=== PATIENT | male | born 1945 | race Caucasian/White ===

== ENCOUNTER → 2017-03-25 | Outpatient (CLI) | payer OTHER, BC | LOC: FIMAGING 12:51 | PROVIDERS: ATTEND Nurse Practitioner Family | DX: R53.83 Other fatigue (principal); R05 Cough; R07.9 Chest pain, unspecified; F17.210 Nicotine dependence, cigarettes, uncomplicated ==

== ENCOUNTER 2017-03-28 07:56 | Emergency (ER) | payer OTHER, BC ==
[2017-03-28 09:12] LABS: % IMMATURE GRANULYOCYTES 0.3 % (0.0-1.1); ABSOLUTE IMMATURE GRANULOCYTES 0.02 10^3/uL (0.00-0.10); ADD DIFF? NO; ADD MORPH? NO; ADD SCAN? NO; ATYPICAL LYMPHOCYTE FLAG 20 (0-99); FRAGMENT RBC FLAG 0 (0-99); HEMATOCRIT 45.7 % (40.0-51.0); HEMOGLOBIN 15.9 g/dL (13.7-17.5); LEFT SHIFT FLG 0 (0-99); LIPEMIA HEMOLYSIS FLAG 90 (0-99); MEAN CELL HEMOGLOBIN 32.3 pg (27.9-34.1); MEAN CELL HEMOGLOBIN CONCENTR. 34.8 g/dL (32.4-36.7); MEAN CELL VOLUME 92.7 fL (81.5-99.8); PLATELET CLUMPS FLAG 10 (0-99); PLATELET COUNT 122 10^3/uL (150-400); RED BLOOD CELL COUNT 4.93 10^6/uL (4.40-6.38); RED CELL DISTRIBUTION WIDTH 12.7 % (11.5-15.2)
[2017-03-28 09:20] LABS: ANION GAP 10 mEq/L (8-16); CALCIUM 9.3 mg/dL (8.5-10.4); CARBON DIOXIDE 26 mEq/l (22-31); CHLORIDE 94 mEq/L (97-110); CREATININE 0.7 mg/dL (0.7-1.3); GLOMERULAR FILTRATION RATE > 60; GLUCOSE 104 mg/dL (70-100); SODIUM 130 mEq/L (134-144)
[2017-03-28] MEDS ORDERED: NS 1,000 ML IV ONE (09:23)
--- NOTE | 2017-03-28 09:36 | CPEKG ---
Heart Rate: 56 RR Interval: 1071 P-R Interval: 196 QRSD Interval: 94 QT Interval: 440 QTC Interval: 425 P [place]: 76 QRS [place]: -29 T Wave [place]: 55 EKG Severity - BORDERLINE ECG - EKG Impression: SINUS RHYTHM EKG Impression: BORDERLINE LEFT AXIS DEVIATION EKG Impression: LOW VOLTAGE IN FRONTAL LEADS EKG Impression: BORDERLINE R WAVE PROGRESSION, ANTERIOR LEADS Electronically Signed By: Dez Greer 28-Mar-2017 14:34:52
--- NOTE | 2017-03-28 09:38 | EDPHY ---
H & P Stated Complaint: +flu;abnl labs done 03/26/17.Dr called him yesterday to go [facility] for IV fluids Source: Patient, Old records Exam Limitations: No limitations - Personal History Current Tetanus Diphtheria and Acellular Pertussis (TDAP): Yes - Medical/Surgical History Hx Chronic Respiratory Disease: Yes Hx Cardiac Disease: Yes Other PMH: HTN - Social History Smoking Status: Current every day smoker HPI/ROS: CHIEF COMPLAINT: Influenza, weakness, hyponatremia HISTORY OF PRESENT ILLNESS: Patient complains of weakness and reportedly abnormal labs. He says that he was diagnosed with the flu 10 days ago. This was after over 2 days of symptoms at that time, thus he was not started on Tamiflu. He has been increasing his fluids since diagnosis. He has been taking anti-inflammatories as needed. He did experience headache, body aches, fevers, chills, cough and nausea. No vomiting. No bloody stools or emesis. No chest pain. Does have occasional shortness of breath and cough. He says he feels better today than he did 10 days ago, but over the course of the week he had a laboratory studies drawn twice due to weakness. Primary care physician says that his sodium was low and has recommended he come to the hospital. No other associated complaints or modifying factors. REVIEW OF SYSTEMS: Ten systems reviewed and are negative unless otherwise noted in the HPI PERTINENT MEDICAL HISTORY: Former smoker, hypertension, hypothyroid, previous [place] EXAMINATION General Appearance: Alert, no distress Head: normocephalic, atraumatic Eyes: Pupils equal and round, no conjunctival pallor or injection ENT, Mouth: Mucous membranes moist Neck: Normal inspection, supple, non-tender Respiratory: Mild rhonchi. No crackles or consolidation. No wheezing. Cardiovascular: Regular rate and rhythm. No murmur. Pulses intact distally. Gastrointestinal: Abdomen is soft and nontender Back: non-tender, no bony abnormalities Neurological: GCS 15. A&O, nonfocal, normal gait Skin: Warm and dry, no rash Extremities: Nontender, no pedal edema Psychiatric: Mood and affect normal DIFFERENTIAL DIAGNOSES: Including but not limited to hyponatremia, pneumonia, influenza, dehydration, hyperkalemia, hypochloremia MDM: 9:15 a.m. Influenza with weakness. Patient is here because he had been told his laboratory studies were abnormal. Chart review discovers hyponatremia, hypochloremia and mild thrombocytopenia. No chest pain. The patient says he is feeling weak but much better than when he was diagnosed with the flu last Tuesday. He vital signs are within normal limits. I will repeat his chemistry. 10:00 a.m. Sodium has increased to 130 mEq. Chloride has also increased to 94. These are minimally low laboratory studies. Will provide IV fluid resuscitation with 1 L infused over 2 hours. Patient is comfortable with being discharged home and does not actually want to be here. I do feel he is stable for discharge home as his symptoms are improving, his vital signs are all within normal limits, he is mentating appropriately and has no chest pain. I will discuss the case with his primary care physician prior to discharge home 10:10 a.m. I discussed the case with Dr. Gasca. I informed her of the patient's recent history and illness, as well as his hyponatremia. I informed her that the sodium has gone from 126 2 days ago to 130 today. I have also informed her the increase in his chloride. Informed that we are providing graduated IV fluid resuscitation and plan for discharge home. She agrees that this is reasonable given the description of the case. She would like the patient to be seen Tuesday, Tuesday or in the clinic for recheck of the sodium. 10:35 a.m. I have re-evaluated the patient. I have discussed the conversation with him that I had with his primary care physician's office. He agrees that he would like to be discharged home and is comfortable this. The be discharged home after the IV fluid. He is to return to ER for any worsening of the weakness, chest pain, persistent fever, vomiting. He is also to return for any confusion , headache or dizziness. SUPERVISION: Patient was evaluated in conjunction with the supervising physician. Please see their note for details. (Marco Antonio Snider) Constitutional: Initial Vital Signs Temperature (C) 98.1 F 03/28/17 08:09 Heart Rate 62 03/28/17 08:09 Respiratory Rate 18 03/28/17 08:09 Blood Pressure 130/76 H 03/28/17 08:09 O2 Sat (%) 93 03/28/17 08:09 O2 Delivery Mode Room Air Allergies/Adverse Reactions: No Known Allergies Allergy (Unverified 12/28/10 11:46) Home Medications: Medication Instructions Recorded Albuterol [Proventil Inhaler HFA 1 - 2 puffs IH DAILY PRN 03/28/17 (*)] Aspirin [Aspirin 81mg (*)] 81 mg PO DAILY 03/28/17 Levothyroxine [Synthroid 100 mcg 100 mcg PO DAILY06 03/28/17 (*)] Metoprolol Succinate Xr [Toprol Xl 50 mg PO DAILY 03/28/17 50 mg (*)] Multivitamins [Multivitamin (*)] 1 each PO DAILY 03/28/17 Rosuvastatin Calcium [Crestor 20mg 20 mg PO DAILY 03/28/17 (*)] amLODIPine BESYLATE [Norvasc 5 mg 5 mg PO DAILY 03/28/17 (*)] Medical Decision Making ED Course/Re-evaluation: 941: Patient evaluated by myself. He is well-appearing and resting comfortably. I discussed lab results with him and options of returning home or being admitted to the hospital for monitoring. He is comfortable returning home and states that he is able to undergo daily activities appropriately. I feel comfortable with this decision. He will be given strict return precautions and discharged home in good condition. (Dez Greer) - Data Points Laboratory Results: Laboratory Results 03/28/17 08:30 03/28/17 08:30 03/28/17 03/28/17 08:30 08:30 WBC 6.31 10^3/uL 10^3/uL (3.80-9.50) RBC 4.93 10^6/uL 10^6/uL (4.40-6.38) Hgb 15.9 g/dL g/dL (13.7-17.5) Hct 45.7 % % (40.0-51.0) MCV 92.7 fL fL (81.5-99.8) MCH 32.3 pg pg (27.9-34.1) MCHC 34.8 g/dL g/dL (32.4-36.7) RDW 12.7 % % (11.5-15.2) Plt Count 122 10^3/uL L 10^3/uL (150-400) MPV 12.0 fL H fL (8.7-11.7) Neut % (Auto) 69.9 % % (39.3-74.2) Lymph % (Auto) 19.2 % % (15.0-45.0) [place] % (Auto) 8.6 % % (4.5-13.0) Eos % (Auto) 1.4 % % (0.6-7.6) Baso % (Auto) 0.6 % % (0.3-1.7) Nucleat RBC Rel Count 0.0 % % (0.0-0.2) Absolute Neuts (auto) 4.41 10^3/uL 10^3/uL (1.70-6.50) Absolute Lymphs (auto) 1.21 10^3/uL 10^3/uL (1.00-3.00) Absolute Monos (auto) 0.54 10^3/uL 10^3/uL (0.30-0.80) Absolute Eos (auto) 0.09 10^3/uL 10^3/uL (0.03-0.40) Absolute Basos (auto) 0.04 10^3/uL 10^3/uL (0.02-0.10) Absolute Nucleated RBC 0.00 10^3/uL 10^3/uL (0-0.01) Immature Gran % 0.3 % % (0.0-1.1) Immature Gran # 0.02 10^3/uL 10^3/uL (0.00-0.10) Sodium 130 mEq/L L mEq/L (134-144) Potassium 4.0 mEq/L mEq/L (3.5-5.2) Chloride 94 mEq/L L mEq/L (97-110) Carbon Dioxide 26 mEq/l mEq/l (22-31) Anion Gap 10 mEq/L mEq/L (8-16) BUN 8 mg/dL mg/dL (7-23) Creatinine 0.7 mg/dL mg/dL (0.7-1.3) Estimated GFR > 60 Glucose 104 mg/dL H mg/dL (70-100) Calcium 9.3 mg/dL mg/dL (8.5-10.4) Medications Given: Discontinued Medications Sodium Chloride (Ns) 1,000 mls @ 0 mls/hr IV ONCE ONE PRN Reason: As Directed Stop: 03/28/17 09:24 Last Admin: 03/28/17 09:46 Dose: 1,000 mls Departure - Departure Disposition: Home, Routine, Self-Care Clinical Impression: Influenza, Hyponatremia, Hypochloremia Condition: Good Instructions: Hyponatremia (ED), Influenza (ED) Additional Instructions: Moderate fluid intake. Return to the ER for worsening weakness, fever, chills. Return to ER for any chest pain. Follow up with primary care physician's office this week to recheck your sodium. Referrals: Marta Avitia MD [Primary Care Provider] - As per Instructions
[2017-03-28 10:21] VITALS: PULSE 61
[2017-03-28 11:30] VITALS: BP 139/82; RESP 16; TEMP 97; O2SAT 96
== END 2017-03-28 11:30 | disposition home or self-care (01) ==
DX: J11.1 Influenza due to unidentified influenza virus with other respiratory manifestations (principal); E87.1 Hypo-osmolality and hyponatremia; E87.8 Other disorders of electrolyte and fluid balance, not elsewhere classified; I10 Essential (primary) hypertension; F17.200 Nicotine dependence, unspecified, uncomplicated; I25.2 Old myocardial infarction; Z79.82 Long term (current) use of aspirin

== ENCOUNTER → 2017-04-05 | Outpatient (CLI) | payer OTHER, BC | LOC: FIMAGING 15:10 | PROVIDERS: ATTEND Family Medicine | DX: M19.041 Primary osteoarthritis, right hand (principal); R53.81 Other malaise; Z85.46 Personal history of malignant neoplasm of prostate ==

== ENCOUNTER → 2017-04-06 | Outpatient (CLI) | payer OTHER, BC ==
[~2017-04-06] MED LIST: IOPAMIDOL (ISOVUE-300) 100 ML BTL ONE
== END ==
LOC: CIMAGING 13:20
PROVIDERS: ATTEND Family Medicine
DX: J44.9 Chronic obstructive pulmonary disease, unspecified (principal); R91.1 Solitary pulmonary nodule; R53.81 Other malaise; R63.4 Abnormal weight loss; F17.200 Nicotine dependence, unspecified, uncomplicated; Z95.1 Presence of aortocoronary bypass graft; Z85.46 Personal history of malignant neoplasm of prostate
CPT/HCPCS: 71260; Q9967

== ENCOUNTER → 2018-01-09 | Outpatient (CLI) | payer OTHER, BC ==
[~2018-01-09] MED LIST changes: +IOPAMIDOL (ISOVUE 370) 100 ML BTL IV ONE
== END ==
LOC: CIMAGING 14:22
PROVIDERS: ATTEND Internal Medicine
DX: R10.9 Unspecified abdominal pain (principal); R63.4 Abnormal weight loss; I70.0 Atherosclerosis of aorta; Z90.79 Acquired absence of other genital organ(s)
CPT/HCPCS: 74177; Q9967

== ENCOUNTER 2018-03-10 17:38 | Inpatient (IN) | payer OTHER, BC ==
[2018-03-10] MEDS ORDERED: methylPREDNISolone SOD SUCC 125 MG/2 ML VIAL IVP ONE (17:48)
[2018-03-10] MEDS ORDERED: IPRATROPIUM/ALBUTEROL 3 ML DEYVIAL IH ONE (17:48)
[2018-03-10] MEDS ORDERED: NS 500 ML IV ONE (17:52)
--- NOTE | 2018-03-10 17:52 | EDPHY ---
H & P Time Seen by Provider: 03/10/18 17:48 HPI/ROS: CHIEF COMPLAINT: Shortness of breath HISTORY OF PRESENT ILLNESS: The patient is a 72-year-old man with a history of COPD as well as coronary artery disease with a history of CABG 4 vessels in 2001 and hypertension. He states that over the last few days he has had increased work of breathing. No fevers. No cough. He is on several antihypertensives but no steroids or inhalers. He thinks that he is having exacerbation because he has been smoking. When paramedics arrived he was 82% on room air. His sats improved on 6 L of nasal cannula. REVIEW OF SYSTEMS: Constitutional: denies: chills, fever, recent illness, recent injury EENTM: denies: blurred vision, double vision, nose congestion Respiratory: See HPI Cardiac: denies: chest pain, irregular heart rate, lightheadedness, palpitations Gastrointestinal/Abdominal: denies: abdominal pain, diarrhea, nausea, vomiting, blood streaked stools Genitourinary: denies: dysuria, frequency, hematuria, pain Musculoskeletal: denies: joint pain, muscle pain Skin: denies: lesions, rash, jaundice, bruising Neurological: denies: headache, numbness, paresthesia, tingling, dizziness, weakness Hematologic/Lymphatic: denies: blood clots, easy bleeding, easy bruising Immunologic/allergic: denies: HIV/AIDS, transplant EXAM: GENERAL: Extremely thin and appears malnourished HEAD: Atraumatic, normocephalic. EYES: Pupils equal round and reactive to light, extraocular movements intact, sclera anicteric, conjunctiva are normal. ENT: TMs normal, nares patent, oropharynx clear without exudates. Dry mucous membranes. NECK: Normal range of motion, supple without lymphadenopathy or JVD. LUNGS: Distant breath sounds, no wheezes or rhonchi HEART: Regular rate and rhythm without murmurs, rubs or gallops. ABDOMEN: Soft, nontender, normoactive bowel sounds. No guarding, no rebound. No masses appreciated. BACK: No CVA tenderness, no spinal tenderness, step-offs or deformities EXTREMITIES: Normal range of motion, no pitting or edema. No clubbing or cyanosis. NEUROLOGICAL: Cranial nerves II through XII grossly intact. Normal speech, normal gait. 5/5 strength, normal movement in all extremities, normal sensation PSYCH: Normal mood, normal affect. SKIN: Warm, dry, normal turgor, no visible rashes or lesions. Source: Patient Exam Limitations: No limitations - Medical/Surgical History Hx Chronic Respiratory Disease: Yes Hx Cardiac Disease: Yes Other PMH: HTN - Family History Significant Family History: No pertinent family hx - Social History Smoking Status: Current every day smoker Alcohol Use: Sober Drug Use: None Constitutional: Initial Vital Signs Temperature (C) 36.7 C 03/10/18 17:49 Heart Rate 54 L 03/10/18 17:49 Respiratory Rate 22 H 03/10/18 17:49 Blood Pressure 149/85 H 03/10/18 17:49 O2 Sat (%) 100 03/10/18 17:49 O2 Delivery Mode Nasal Cannula O2 (L/minute) 4 Allergies/Adverse Reactions: No Known Allergies Allergy (Unverified 12/28/10 11:46) Home Medications: Medication Instructions Recorded Aspirin [Aspirin 81mg (*)] 81 mg PO DAILY 03/28/17 Metoprolol Succinate Xr [Toprol Xl 50 mg PO DAILY 03/28/17 50 mg (*)] Multivitamins [Multivitamin (*)] 1 tab PO DAILY 03/28/17 Rosuvastatin Calcium [Crestor 20mg 20 mg PO HS 03/28/17 (*)] amLODIPine BESYLATE [Norvasc 5 mg 5 mg PO DAILY 03/28/17 (*)] Levothyroxine [Synthroid 50 mcg 50 mcg PO DAILY06 03/10/18 (*)] Medical Decision Making - Diagnostics Imaging Results: Imaging Impressions Chest X-Ray 03/10/18 17:48 Impression: COPD. No pneumonia or CHF. Chest/Thorax CTA 03/10/18 18:33 Impression: 1. No definite pulmonary thromboemboli. 2. Severe centrilobular and bullous emphysema. 3. Severe mucous plugging worse in the left lower lobe. 4. No definite pneumonia, pleural effusion or pneumothorax. 5. Right upper lobe 3 mm and right lower lobe 4 mm pulmonary nodule stable since March 2017, however, recommend follow-up CT in one year to ensure stability. 6. Mild ascending aortic aneurysm 4.1 cm without dissection. Findings and recommendations discussed with Emergency Department physician, Rui Torres at 19:30 hour, 03/10/2018. Final report concurs with initial preliminary interpretation. A test result has been communicated to a licensed care provider and documented in the [employer] Critical Result system on 03/10/2018 19:36, Message ID [id number]. Imaging: Discussed imaging studies w/ call worker Radiologist ED Course/Re-evaluation: 6:30 p.m. the patient is feeling much better. He is now saturating 94% on 2 L. His chest x-ray does not show any signs of edema or pneumonia. His lung exam now reveals some expiratory wheezing. I recommended admission the hospital the patient is hesitant. I will give him a 3rd nap and more time for the steroids to work and re-evaluate. 7:40 p.m. the patient desaturates to 83% on room air. On CT scan he has no PE but a large amount of mucus plugging. I will admit. 7:45 p.m. I discussed the case with Dr. Deepika lynn who will admit to the medical floor. Differential Diagnosis: Partial list of the Differential diagnosis considered include but were not limited to; COPD, pneumonia, bronchitis and although unlikely based on the history and physical exam, I also considered CHF, acute coronary disease, PE, dissection. - Data Points Laboratory Results: Laboratory Results 03/10/18 17:45 03/10/18 17:45 03/10/18 03/10/18 03/10/18 18:05 17:45 17:45 WBC RBC Hgb Hct MCV MCH MCHC RDW Plt Count MPV Neut % (Auto) Lymph % (Auto) [place] % (Auto) Eos % (Auto) Baso % (Auto) Nucleat RBC Rel Count Absolute Neuts (auto) Absolute Lymphs (auto) Absolute Monos (auto) Absolute Eos (auto) Absolute Basos (auto) Absolute Nucleated RBC Immature Gran % Immature Gran # PT REJ INR REJ APTT REJ D-Dimer 0.94 ug/mLFEU H ug/mLFEU REJ (0.00-0.50) Sodium 136 mEq/L mEq/L (135-145) Potassium 4.2 mEq/L mEq/L (3.5-5.2) Chloride 90 mEq/L L mEq/L (97-110) Carbon Dioxide 37 mEq/l H mEq/l (22-31) Anion Gap 9 mEq/L mEq/L (8-16) BUN 19 mg/dL mg/dL (7-23) Creatinine 0.7 mg/dL mg/dL (0.7-1.3) Estimated GFR > 60 Glucose 120 mg/dL H mg/dL (70-100) Calcium 9.3 mg/dL mg/dL (8.5-10.4) Troponin I < 0.012 ng/mL ng/mL (0.000-0.034) 03/10/18 17:45 WBC 5.77 10^3/uL 10^3/uL (3.80-9.50) RBC 4.80 10^6/uL 10^6/uL (4.40-6.38) Hgb 16.2 g/dL g/dL (13.7-17.5) Hct 47.6 % % (40.0-51.0) MCV 99.2 fL fL (81.5-99.8) MCH 33.8 pg pg (27.9-34.1) MCHC 34.0 g/dL g/dL (32.4-36.7) RDW 13.2 % % (11.5-15.2) Plt Count 142 10^3/uL L 10^3/uL (150-400) MPV 11.7 fL fL (8.7-11.7) Neut % (Auto) 82.1 % H % (39.3-74.2) Lymph % (Auto) 11.3 % L % (15.0-45.0) [place] % (Auto) 5.0 % % (4.5-13.0) Eos % (Auto) 0.9 % % (0.6-7.6) Baso % (Auto) 0.2 % L % (0.3-1.7) Nucleat RBC Rel Count 0.0 % % (0.0-0.2) Absolute Neuts (auto) 4.74 10^3/uL 10^3/uL (1.70-6.50) Absolute Lymphs (auto) 0.65 10^3/uL L 10^3/uL (1.00-3.00) Absolute Monos (auto) 0.29 10^3/uL L 10^3/uL (0.30-0.80) Absolute Eos (auto) 0.05 10^3/uL 10^3/uL (0.03-0.40) Absolute Basos (auto) 0.01 10^3/uL L 10^3/uL (0.02-0.10) Absolute Nucleated RBC 0.00 10^3/uL 10^3/uL (0-0.01) Immature Gran % 0.5 % % (0.0-1.1) Immature Gran # 0.03 10^3/uL 10^3/uL (0.00-0.10) PT INR APTT D-Dimer Sodium Potassium Chloride Carbon Dioxide Anion Gap BUN Creatinine Estimated GFR Glucose Calcium Troponin I Medications Given: Albuterol (Proventil Neb) 3 ml IH Q2HRS PRN PRN Reason: Short of Breath/Dyspnea Stop: 09/06/18 20:22 Last Admin: 03/10/18 20:39 Dose: 3 ml Albuterol/Ipratropium (Duoneb) 3 ml IH Q1HR KULWINDER Stop: 09/06/18 22:59 Last Admin: 03/10/18 22:16 Dose: 3 ml Rosuvastatin Calcium (Crestor) 20 mg PO HS KULWINDER Stop: 09/06/18 20:59 Last Admin: 03/10/18 22:38 Dose: Not Given Discontinued Medications Albuterol (Proventil Neb) 3 ml IH EDNOW ONE Stop: 03/10/18 18:37 Last Admin: 03/10/18 18:41 Dose: 3 ml Albuterol/Ipratropium (Duoneb) 3 ml IH EDNOW ONE Stop: 03/10/18 17:49 Last Admin: 03/10/18 18:01 Dose: 3 ml Albuterol/Ipratropium (Duoneb) 3 ml IH QID KULWINDER Stop: 09/06/18 20:59 Last Admin: 03/10/18 22:16 Dose: Not Given Guaifenesin (Mucinex) 600 mg PO EDNOW ONE Stop: 03/10/18 20:26 Last Admin: 03/10/18 20:40 Dose: 600 mg Sodium Chloride (Ns) 500 mls @ 0 mls/hr IV EDNOW ONE; Wide Open PRN Reason: Protocol Stop: 03/10/18 17:53 Last Admin: 03/10/18 18:01 Dose: 500 mls Sodium Chloride (Ns) 1,000 mls @ 0 mls/hr IV EDNOW ONE; Wide Open PRN Reason: Protocol Stop: 03/10/18 20:28 Last Admin: 03/10/18 20:31 Dose: 1,000 mls Methylprednisolone Sodium Succinate (Solu-Medrol) 125 mg IVP EDNOW ONE Stop: 03/10/18 17:49 Last Admin: 03/10/18 18:02 Dose: 125 mg Methylprednisolone Sodium Succinate (Solu-Medrol) 60 mg IVP BID KULWINDER Stop: 09/06/18 20:59 Last Admin: 03/10/18 22:33 Dose: 60 mg Departure - Departure Disposition: [facility] Inpatient Acute Clinical Impression: Chronic obstructive pulmonary disease with acute exacerbation, Mucus plugging of bronchi Condition: Fair
[2018-03-10 17:57] LABS: PLATELET COUNT 142 10^3/uL (150-400)
--- NOTE | 2018-03-10 18:27 | CPEKG ---
Heart Rate: 56 RR Interval: 1071 P-R Interval: 188 QRSD Interval: 96 QT Interval: 468 QTC Interval: 452 P [place]: 99 QRS [place]: 91 T Wave [place]: 32 EKG Severity - ABNORMAL ECG - EKG Impression: SINUS RHYTHM EKG Impression: RIGHT ATRIAL ABNORMALITY EKG Impression: RIGHT AXIS DEVIATION EKG Impression: LOW VOLTAGE IN FRONTAL LEADS EKG Impression: CONSIDER LEFT VENTRICULAR HYPERTROPHY Electronically Signed By: Rui Torres 10-Mar-2018 18:46:03
[2018-03-10] MEDS ORDERED: ALBUTEROL 3 ML DEYVIAL IH ONE (18:36)
[2018-03-10] MEDS ORDERED: IOPAMIDOL (ISOVUE 370) 100 ML BTL IV ONE (18:41)
[2018-03-10] MEDS ORDERED: ALBUTEROL 3 ML DEYVIAL IH PRN (20:23)
[2018-03-10] MEDS ORDERED: ONDANSETRON DISINTEGRATING 4 MG TAB PO PRN (20:23)
[2018-03-10] MEDS ORDERED: ONDANSETRON 4 MG/2 ML VIAL IVP PRN (20:23)
[2018-03-10] MEDS ORDERED: oxyCODONE IR 5 MG TAB PO PRN (20:23)
[2018-03-10] MEDS ORDERED: LORazepam 0.5 MG TAB PO PRN (20:23)
[2018-03-10] MEDS ORDERED: guaiFENesin 600 MG TAB.ER PO ONE (20:25)
[2018-03-10] MEDS ORDERED: hydrALAZINE 20 MG/ML VIAL IVP PRN (20:25)
[2018-03-10] MEDS ORDERED: NS 1,000 ML IV ONE (20:27)
[2018-03-10] MEDS ORDERED: IPRATROPIUM/ALBUTEROL 3 ML DEYVIAL IH SCH ×2 (21:00→23:00)
[2018-03-10] MEDS ORDERED: methylPREDNISolone SOD SUCC 125 MG/2 ML VIAL IVP SCH (21:00)
[2018-03-10] MEDS ORDERED: NS W/ 20 KCl/L 1,000 ML IV SCH (22:15)
--- NOTE | 2018-03-10 22:23 | PDGENHP ---
History and Physical - Chief Complaint SOB - History of Present Illness The patient is a 72-year-old man with a history of COPD as well as coronary artery disease with a history of CABG 4 vessels in 2001 and hypertension. He states that over the last few days he has had increased work of breathing. No fevers. No cough. He is on several antihypertensives but no steroids or inhalers. He thinks that he is having exacerbation because he has been smoking. He was started on Solu-Medrol and bronchodilators. He does not have any e/o infection. CT Chest shows no P.E. It does show severe centrilobular and bullous emphysema. It also shows severe mucus plugging which is worse in the LLL. There is also mild ascending aortic aneurysm He denies cp, fever, palpitations or leg swelling. PMHX/PSHX: COPD CAD CABG- 4 vessel HTN Tobacco Abuse disorder Soc Hx: + tobacco no ETOH FmHx: NC History Information - Allergies/Home Medication List Allergies/Adverse Reactions: No Known Allergies Allergy (Unverified 12/28/10 11:46) Home Medications: Aspirin [Aspirin 81mg (*)] 81 mg PO DAILY 03/28/17 [Last Taken 03/09/18] Metoprolol Succinate Xr [Toprol Xl 50 mg (*)] 50 mg PO DAILY 03/28/17 [Last Taken 03/09/18] Multivitamins [Multivitamin (*)] 1 tab PO DAILY 03/28/17 [Last Taken 03/09/18] Rosuvastatin Calcium [Crestor 20mg (*)] 20 mg PO HS 03/28/17 [Last Taken ] amLODIPine BESYLATE [Norvasc 5 mg (*)] 5 mg PO DAILY 03/28/17 [Last Taken ] Levothyroxine [Synthroid 50 mcg (*)] 50 mcg PO DAILY06 03/10/18 [Last Taken ] I have personally reviewed and updated: medical history, social history - Social History Smoking Status: Current every day smoker Alcohol Use: Sober Drug Use: None Review of Systems Review of Systems: ROS: 10pt was reviewed & negative except for what was stated in HPI & below Physical Exam Physical Exam: Temp Pulse Resp BP Pulse Ox 36.3 C 53 L 18 147/87 H 92 03/10/18 21:01 04/20/18 21:01 03/10/18 21:01 03/10/18 21:01 03/10/18 21:18 O2 (L/minute) 10 Constitutional: no apparent distress, chronically ill appearing Eyes: PERRL, EOMI Ears, Nose, Mouth, Throat: moist mucous membranes, No dry mucous membranes Cardiovascular: tachycardia, No edema Respiratory: reduced air movement, expiratory wheeze, other (increased work of breathing) Gastrointestinal: normoactive bowel sounds Skin: warm Neurologic: AAOx3 Psychiatric: interacting appropriately, not anxious, not encephalopathic Lymph, Heme, Immunologic: No petechiae Lab Data & Imaging Review 03/10/18 17:45 03/10/18 17:45 WBC 5.77 10^3/uL (3.80-9.50) 03/10/18 17:45 RBC 4.80 10^6/uL (4.40-6.38) 03/10/18 17:45 Hgb 16.2 g/dL (13.7-17.5) 03/10/18 17:45 Hct 47.6 % (40.0-51.0) 03/10/18 17:45 MCV 99.2 fL (81.5-99.8) 03/10/18 17:45 MCH 33.8 pg (27.9-34.1) 03/10/18 17:45 MCHC 34.0 g/dL (32.4-36.7) 03/10/18 17:45 RDW 13.2 % (11.5-15.2) 03/10/18 17:45 Plt Count 142 10^3/uL (150-400) L 03/10/18 17:45 MPV 11.7 fL (8.7-11.7) 03/10/18 17:45 Neut % (Auto) 82.1 % (39.3-74.2) H 03/10/18 17:45 Lymph % (Auto) 11.3 % (15.0-45.0) L 03/10/18 17:45 [place] % (Auto) 5.0 % (4.5-13.0) 03/10/18 17:45 Eos % (Auto) 0.9 % (0.6-7.6) 03/10/18 17:45 Baso % (Auto) 0.2 % (0.3-1.7) L 03/10/18 17:45 Nucleat RBC Rel Count 0.0 % (0.0-0.2) 03/10/18 17:45 Absolute Neuts (auto) 4.74 10^3/uL (1.70-6.50) 03/10/18 17:45 Absolute Lymphs (auto) 0.65 10^3/uL (1.00-3.00) L 03/10/18 17:45 Absolute Monos (auto) 0.29 10^3/uL (0.30-0.80) L 03/10/18 17:45 Absolute Eos (auto) 0.05 10^3/uL (0.03-0.40) 03/10/18 17:45 Absolute Basos (auto) 0.01 10^3/uL (0.02-0.10) L 03/10/18 17:45 Absolute Nucleated RBC 0.00 10^3/uL (0-0.01) 03/10/18 17:45 Immature Gran % 0.5 % (0.0-1.1) 03/10/18 17:45 Immature Gran # 0.03 10^3/uL (0.00-0.10) 03/10/18 17:45 PT REJ 03/10/18 17:45 INR REJ 03/10/18 17:45 APTT REJ 03/10/18 17:45 D-Dimer 0.94 ug/mLFEU (0.00-0.50) H 03/10/18 18:05 Sodium 136 mEq/L (135-145) 03/10/18 17:45 Potassium 4.2 mEq/L (3.5-5.2) 03/10/18 17:45 Chloride 90 mEq/L (97-110) L 03/10/18 17:45 Carbon Dioxide 37 mEq/l (22-31) H 03/10/18 17:45 Anion Gap 9 mEq/L (8-16) 03/10/18 17:45 BUN 19 mg/dL (7-23) 03/10/18 17:45 Creatinine 0.7 mg/dL (0.7-1.3) 03/10/18 17:45 Estimated GFR > 60 03/10/18 17:45 Glucose 120 mg/dL (70-100) H 03/10/18 17:45 Calcium 9.3 mg/dL (8.5-10.4) 03/10/18 17:45 Troponin I < 0.012 ng/mL (0.000-0.034) 03/10/18 17:45 Assessment & Plan Assessment: #Acute Hypoxic Resp Failure #COPD with Exacerbation #Mucus Plugging #HTN Plan: The pts resp status has worsened. He is now requiring 10 L supplemental O2. He has increased RR. He is at risk for further decompensation I have discussed the case with Dr. Franky Cheema who will consult tomorrow. The pt is ok with intubation if he declines further Will cont steroids and nebs BiPAP if needed Mucomyst Azithromycin Vibrating Vest SCD's Full Code total critical care time is 70 minutes
[2018-03-10] MEDS: ROSUVASTATIN CALCIUM 20 MG TAB PO SCH (22:38)
--- NOTE | 2018-03-10 22:56 | PDMN ---
Medical Necessity Medical necessity: C/M review: Patient meets INPT crtieria under [facility] M-100 Chronic Obstructive Pulmonary Disease: Acute and persistent - COPD exacerbation , hypoxic respiratory failure, mucus plugging, 87% RA sat, 89% on 10L/min O2 via oxymask, respiratory rate 22-40 per min., increased work of breathing, reduced air movement expiratory wheezing patient is at risk for further decompensation, D-Dimer 0.94, CO2 37, requiring IV NS with 20 meq KCL 75 ml/hr. x 1 1 bag, planned Pulmonary consult, ongoing IV Azithramycin QD, IV Solumedrol TID, Mucomyst Q 4 hrs. scheduled, Duonebs Q 1 hr. scheduled, Proventil nebs Q 2 hrs. as needed, cardiac monitoring, pulse oximetry, supplemental O2, BiPAP if needed, vibrating vest, SCD's, comorbid history of COPD, CAD with history of CABG 4 vessels in 2001, hypertension, tobacco abuse disorder, current every day smoker. MD anticipates > 2 [place] LOS for ongoing med nec for eval and TX of above. Patient is Medicare Advantage which follows guidelines CMS puts forth.
[2018-03-10] MEDS ORDERED: LORazepam 2 MG/ML INJ IVP PRN (23:09)
[2018-03-11] MEDS: AZITHROMYCIN IV 500 MG in NS 250 ML IV SCH ×2 (00:11→13:26)
--- NOTE | 2018-03-11 00:43 | HOSPPROG ---
Hospitalist Progress Note Assessment/Plan: Hospitalist Night Float Note Arrived to bedside for a Stat team called approximately 1030pm Patient with sudden increase in oxygen requirements and WOB from 4liters NR to 10liters.. BIPAP had been placed but patient became significantly claustrophobic and intolerant. O2 saturations dropped to 70% and bipap removed. Patient transferred to ICU. upon arrival o2 sat stabilized and o2 titrated down to maintain sats 88-90% but patient still saturating high 90s. Selected Entries 03/10/18 21:49 Heart Rate 68 Respiratory 40 H Rate O2 Sat (%) 89 L Temperature (C) 36.4 C Blood Pressure 149/110 H Mean Arterial 123 H Pressure (MAP) O2 (L/minute) 10 Activity During At Rest Vital Signs O2 Delivery Oxymask Mode Blood Pressure Right Source Upper Arm Heart Rate/ Monitor Temperature Axillary Source Heart Rate Automatic Source Gen - moderate respiratory distress. pt with NR in place. thin cachectic chronically ill appearing. CV - RRR. slightly distant heart sounds. Resp - severely diminished air movement diffusely. increased WOB with accessory muscle use. no wheezing. occasional crackles multiple lung santos. GI - soft. NTTP. Ext - thin. Neuro - patient awake and oriented. interactive. anxious. Plan - patient saturation improved after transfer. nebulizer q2 or sooner if needed. s/p [id number] and continue mucomyst scheduled. continue steroids. pulm/cc called by Dr. Bourgeois and recs ordered previously. add ativan and morphine for anxiety and air hunger. discussed with patient consideration for bipap therapy overnight but patient declines at this time 2/2 anxiety/claustrophobia but amenable if respiratory status changes. FULL COR/ tube if needed. 35 minutes critical care time. Objective: Vital Signs Temp Pulse Resp BP Pulse Ox 36.4 C 68 40 H 173/105 H 89 L 03/10/18 21:49 03/10/18 21:49 03/10/18 21:49 03/11/18 00:09 03/10/18 21:49 PT REJ 03/10/18 17:45 INR REJ 03/10/18 17:45 ICD10 Worksheet Patient Problems: Problems Problem Status Onset Chronic obstructive pulmonary disease with acute exacerbation Acute Mucus plugging of bronchi Acute
[2018-03-11] MEDS: IPRATROPIUM/ALBUTEROL 3 ML DEYVIAL IH SCH ×10 (00:51→17:14)
[2018-03-11] MEDS: ACETYLCYSTEINE 20% IH/PO 4 ML VIAL IH SCH ×5 (02:48→17:14)
[2018-03-11 05:10] LABS: PLATELET COUNT 136 10^3/uL (150-400)
[2018-03-11] MEDS: LEVOTHYROXINE 50 MCG TAB PO SCH ×2 (07:09→11:35)
[2018-03-11] MEDS ORDERED: MULTIVITAMINS 1 EACH TAB PO SCH (09:00)
[2018-03-11] MEDS ORDERED: ASPIRIN 81 MG CHEWABLE TAB PO SCH (09:00)
[2018-03-11] MEDS ORDERED: METOPROLOL SUCCINATE XR 50 MG TAB PO SCH (09:00)
[2018-03-11] MEDS ORDERED: amLODIPine BESYLATE 5 MG TAB PO SCH (09:00)
[2018-03-11] MEDS ORDERED: NICOTINE 21 MG/24 HR PATCH TD SCH (09:00)
[2018-03-11] MEDS: methylPREDNISolone SOD SUCC 125 MG/2 ML VIAL IVP SCH ×3 (11:38→20:11)
--- NOTE | 2018-03-11 12:10 | GCON ---
[f rep st] CONSULTATION PULMONARY CONSULTATION DATE OF CONSULTATION: 03/11/2018 HISTORY OF PRESENT ILLNESS: This patient is a 72-year-old male with a history of COPD of uncertain d uration or hypoxemia who was admitted late yesterday with complaints of shortness of breath and hypox emia. He was relatively stable on admission, but a CT angiogram ruled out pulmonary embolism but jonathan wed significant mucous plugging at the main pacheco and down at the left mainstem. There was no atele ctasis or pleural effusions on that side, and he was relatively stable, but went to the floor where philippe schuster developed increasing shortness of breath and work of breathing. He was given steroids and nebulize rs and transferred to the intensive care unit. I recommended at that time over the phone that he get Mucomyst and nebulizers and a flutter valve or vibrating vest. He did seem to be stable, but again hospitalist was called to come see him at the bedside and BiPAP was started, which he remained on ove rnight. This morning, the BiPAP was removed. He said it was not really very helpful to him and he d id express a lot of claustrophobia with that, and seemed to be relatively stable at this time. REVIEW OF SYSTEMS: His review of systems otherwise significant for mild amounts of hemoptysis over t he last several months, as well as weight loss and anorexia. PAST MEDICAL HISTORY: Coronary artery disease, hypertension, stable pulmonary nodules which were see n on the CT yesterday, hyperlipidemia, peripheral arterial disease, hypothyroidism, an episode of hyp onatremia. PAST SURGICAL HISTORY: Coronary artery bypass grafting. MEDICATIONS: At this time include DuoNeb, Proventil, Mucomyst, Norvasc, aspirin, azithromycin, hydra lazine p.r.n., Synthroid, Ativan, Solu-Medrol, metoprolol, Nicoderm, Zofran, Crestor. PHYSICAL EXAMINATION: VITAL SIGNS: He was afebrile. Blood pressure was 111/79, heart rate 77, respi rations 19, oxygen saturation was 92% on 1 L nasal cannula. GENERAL: He was thin, cachectic and ill- appearing, looking older than his stated age, but was in no apparent distress and was able to speak i n full sentences without using accessory muscles for breathing. HEENT: Pupils equally round and react ramón to light. Nonicteric and noninjected. Mucous membranes are moist without erythema or exudate. N JOHNNA: Neck was supple without adenopathy or jugular vein distention. LUNGS: Breath sounds were diminis hed bilaterally but clear without evidence of wheezing or rhonchi. HEART: Regular rate and rhythm a nd rhythm. ABDOMEN: Soft, nontender, nondistended without hepatosplenomegaly. EXTREMITIES: No clubb ing, cyanosis, or edema. NEUROLOGIC: Nonfocal, including cranial nerves and deep tendon reflexes. S KIN: Skin is warm and dry, without evidence of rash. OBJECTIVE DATA: White count of 7.6, hematocrit of 46, platelets of 136. Blood gas on BiPAP with a p H 7.34, pCO2 64, pO2 56, bicarb 35, oxygen saturation 86%. Basic metabolic panel was significant for a bicarb of 35, but normal renal function. CT scan is as described above. ASSESSMENT AND PLAN: 1. Probable chronic obstructive pulmonary disease exacerbation with mucus plugging. I am concerned about his weight loss, anorexia, and reports of mild hemoptysis. I think treating him over the next couple of days with Mucomyst and nebulizers probably q.4 instead of q.2 would be reasonable. Continu e the IV steroids as well as the antibiotics at this time. He may need repeat imaging. We will see as clinical course goes, he may undergo bronchoscopy at a later date to rule out an endobronchial les ion that may not be so evident on the CT. An alternative approach would be to do another CT scan shou ld he recover and proceed appropriately if that does in fact clear. He should definitely be watched i n the intensive care unit today. 2. He has two tiny nodules seen on the CT scan that are present since last year and are unchanged. They are probably not contributing to his current illness. /[id number]/MODL
--- NOTE | 2018-03-11 13:16 | HOSPPROG ---
Hospitalist Progress Note Assessment/Plan: This is a 72-year-old male smoker new to my care on 03/11/2018 presenting with: #Acute Hypoxic Resp Failure due to COPD exacerbation with suspected mucus plugging # history coronary artery disease with reported ST segment elevations seen on telemetry #HTN # Cachexia most likely due to advanced COPD however malignancy is a concern Plan: Continue close monitoring in the intensive care unit Avoid BiPAP in the setting of mucous plugging and try Vapotherm if his saturations dropped Continue the usual treatment for COPD exacerbation in care per pulmonology Send troponin Disposition: Continue inpatient care Subjective: Patient reports improved shortness of breath. Denies any chest pain. Objective: Vital Signs Temp Pulse Resp BP Pulse Ox 36.4 C 77 19 111/79 92 03/10/18 21:49 03/11/18 06:00 03/11/18 06:00 03/11/18 06:00 03/11/18 06:00 Laboratory Results 03/11/18 04:30 03/11/18 04:30 03/10/18 03/11/18 03/12/18 05:59 05:59 05:59 Output Total 450 Balance -450 PT REJ 03/10/18 17:45 INR REJ 03/10/18 17:45 CT angio of the chest was reviewed Chest x-ray from today was visualized and personally interpreted showing left lower lobe atelectasis - Physical Exam Constitutional: chronically ill appearing Eyes: PERRL, anicteric sclera, EOMI Ears, Nose, Mouth, Throat: dry mucous membranes Cardiovascular: regular rate and rhythym, no murmur, rub, or gallop Respiratory: no rales or rhonchi, reduced air movement (Bilaterally), No expiratory wheeze, No inspiratory crackles Gastrointestinal: normoactive bowel sounds, soft, non-tender abdomen, no palpable masses, No guarding, No rebound Skin: no rashes or abrasions, no fluctuance, no induration ICD10 Worksheet Patient Problems: Problems Problem Status Onset Chronic obstructive pulmonary disease with acute exacerbation Acute Mucus plugging of bronchi Acute
[2018-03-11] MEDS ORDERED: HEPARIN 10,000 UNIT/10 ML MDV (1,000 UNIT/ML) IVP ONE (15:17)
[2018-03-11] MEDS ORDERED: HEPARIN 10,000 UNIT/10 ML MDV (1,000 UNIT/ML) IVP PRN (15:17)
[2018-03-11] MEDS ORDERED: HEPARIN/DEXTROSE 500 ML IV SCH (15:30)
--- NOTE | 2018-03-11 15:33 | ASMTCMCOM ---
CM Note CM Note Notes: Pt has been admitted with COPD exacerbation and is currently on IV ABX. He has a hx of CAD and CABG. CM will follow for any d/c needs. Date Signed: 03/11/2018 03:32 PM Electronically Signed By:TUYET Mccall
[2018-03-11 15:51] LABS: PLATELET COUNT 114 10^3/uL (150-400)
--- NOTE | 2018-03-11 16:07 | CPEKG ---
Heart Rate: 83 RR Interval: 723 P-R Interval: 208 QRSD Interval: 88 QT Interval: 376 QTC Interval: 442 P [place]: 89 QRS [place]: 55 T Wave [place]: 87 EKG Severity - ABNORMAL ECG - EKG Impression: SINUS RHYTHM EKG Impression: BIATRIAL ABNORMALITIES EKG Impression: ANTERIOR INFARCT, AGE INDETERMINATE EKG Impression: ST DEPRESSION, CONSIDER ISCHEMIA, LAT LEADS --NEW SINCE MARCH 10, 2018 Electronically Signed By: Jeff Loomis 12-Mar-2018 07:36:24
[2018-03-11] MEDS ORDERED: LORazepam 2 MG/ML INJ IVP PRN (19:16)
[2018-03-11] MEDS ORDERED: PROMETHAZINE HCL 25 MG/ML INJ IVP PRN (19:16)
[2018-03-11] MEDS ORDERED: SCOPOLAMINE HYDROBROMIDE 1 MG/3 DAYS PATCH TD PRN (19:16)
[2018-03-11] MEDS ORDERED: IPRATROPIUM/ALBUTEROL 3 ML DEYVIAL IH PRN (19:19)
--- NOTE | 2018-03-11 19:23 | HOSPPROG ---
Hospitalist Progress Note Assessment/Plan: Advanced care planning encounter in addition to today's daily encounter, 20 min [id number] with the patient at bedside from 7:00 p.m. To 7:20 p.m., addressing the following: -patient expressed to his nurse that he wanted to be made comfort measures and his top priority is alleviation of pain from respiratory discomfort -I discussed this with the patient, and he denies being depressed, denies being suicidal, understands his current clinical processes including myocardial infarction as well as acute COPD exacerbation and respiratory failure, he reports that he desires no further aggressive medical management strategies for any these conditions unless they will provide him with symptomatic pain relief -consequently, the patient and I agreed that continuing his heparin drip and aggressive scheduled breathing treatments would be of little value accomplishing this goal, and the patient expressed that he would simply like pain and anxiety lytic medications for respiratory comfort tonight -I asked him whether he would want his code status adjusted to do not resuscitate, do not intubate, and the patient expresses that he would like no aggressive measures to prolong his life, and he is in agreement that hospice evaluation tomorrow would be appropriate for ongoing care beyond this hospitalization -the patient named his brother in [place] as his medical power of commonwealth attorney, but the patient did have concerns that given his brother's marcelo as a regional engineer, his brother may have difficulty following the patient's verbally expressed advanced directive which is do not engage in aggressive measures to prolong life, treat pain supportively, adjust to comfort measures at this time -discussed with patient's instructor adjunct pharmacy technician nurse, we are in agreement to discontinue the patient's heparin drip, I have adjusted the patient's scheduled breathing treatments as needed, continued his oral medications simply for supportive management until the patient has made a firm hospice decision tomorrow, and provide him with as much as needed IV morphine and Ativan required for respiratory comfort Objective: Vital Signs Temp Pulse Resp BP Pulse Ox 36.2 C 83 31 H 108/72 94 03/11/18 16:00 03/11/18 18:00 03/11/18 18:00 03/11/18 18:00 03/11/18 18:00 Laboratory Results 03/11/18 15:35 03/11/18 04:30 03/10/18 03/11/18 03/12/18 05:59 05:59 05:59 Intake Total 637 Output Total 450 550 Balance -450 87 PT REJ 03/11/18 15:35 INR REJ 03/11/18 15:35 ICD10 Worksheet Patient Problems: Problems Problem Status Onset Chronic obstructive pulmonary disease with acute exacerbation Acute Mucus plugging of bronchi Acute
[2018-03-11 20:10] VITALS: BP 94/65
[2018-03-11] MEDS: ROSUVASTATIN CALCIUM 20 MG TAB PO SCH (20:11)
--- NOTE | 2018-03-11 22:07 | GCON ---
[f rep st] CONSULTATION CARDIOLOGY CONSULTATION DATE OF CONSULTATION: 03/11/2018 CONSULTING PHYSICIAN: Dr. Fawad Rivera. REASON FOR CONSULTATION: Elevated troponin of 7.9 in the setting of known history of coronary artery disease. HISTORY OF PRESENT ILLNESS: The patient is a pleasant 72-year-old gentleman with a past medical history of coronary artery disease, status post 4-vessel CABG in 2001, hypertension, hyperlipidemia, peripheral vascular disease, underlying COPD, and chronic hypoxemia, as well as hypothyroidism, who was in his usual state of health until the past several days when he has developed significant increase in shortness of breath, prompting his presentation to [facility] yesterday. He does state that he has become progressively more short of breath over the last 12 months. His medical course has also been complicated by significant weight loss of 60 pounds over the last 1 year of unclear etiology. His primary care physician had recommended a colonoscopy in September, which he refused to do. He was ultimately brought to telemetry, but he developed acute onset of respiratory distress prompting his transfer to the ICU. He did have an elevated D-dimer of 0.91. He underwent a CTA which was negative for pulmonary emboli, which did demonstrate severe centrilobular and bullous emphysema and severe mucous plugging. He did have a dilated ascending aorta measuring 4.1 cm. He was treated with steroids and nebulizers. Overnight, he required BiPAP. This morning, he states that he did not feel that BiPAP was necessarily helpful. He denies any complaints of chest pain, chest pressure, palpitations, near- syncope or syncope. He has no complaints of PND, orthopnea, or lower extremity edema. He does note a 1-year history of progressive shortness of breath, dyspnea on exertion, fatigue, and weight loss of 60 pounds. His weight today is 119 pounds. He states his weight when he is healthy is 190 pounds. He is 6 feet tall. ECG on admission on 03/10/2018, at 1824, demonstrated sinus bradycardia at 56 beats per minute, with low voltage in the frontal leads. Findings were consistent with LVH without evidence of ST-segment elevation. There are repolarization changes primarily noted in leads V2 and V3 consistent with LVH. Repeat ECG today, at 1441, demonstrates sinus rhythm at 83 beats per minute. Q- waves are noted in V1 through V3 with decline in R wave in V4. Findings remain consistent with LVH. Minimal ST-depression in V5 and V6 with upright T-waves. The patient continues to deny any complaints of chest pain, chest pressure, jaw pain, shoulder pain or epigastric discomfort. No complaint of nausea or vomiting. Troponin on initial presentation was less than 0.012. Repeat troponin today demonstrates a value of 7.930. Currently, at the time of my exam, he is on 1 L nasal cannula with oxygen saturation at 92%. Blood pressure 101/72, and heart rate of 87, in sinus rhythm. Telemetry demonstrates sinus rhythm, primarily in the 80s. He does have brief runs of a wide-complex tachycardia consistent with nonsustained ventricular tachycardia. Longest run was approximately 15 beats. These episodes are asymptomatic. PAST MEDICAL HISTORY: 1. Severe COPD. 2. Chronic hypoxemia. 3. Coronary artery disease, status post 4-vessel CABG in 2001. 4. Hypertension. 5. Hyperlipidemia. 6. Peripheral vascular disease. 7. Hypothyroidism. PAST SURGICAL HISTORY: A 4-vessel CABG in 2001. MEDICATIONS: On admission: Aspirin 81 mg daily, Toprol-XL 50 mg once daily, amlodipine 5 mg daily, Crestor 20 mg daily, and Synthroid 50 mcg daily. ALLERGIES: No known drug allergies. SOCIAL HISTORY: The patient continues to smoke approximately 1/2 pack per day. He lives alone. He does not have a . He has no children. He has a brother named Matthew, who lives in [place]. He has a local friend who looks after him, whose name is Franky. FAMILY HISTORY: Noncontributory. PHYSICAL EXAMINATION: VITAL SIGNS: Blood pressure is 101/72, heart rate 87; in sinus rhythm, respiratory rate of 21, oxygen saturation 92% on 1 L via nasal cannula. GENERAL: The patient is thin, cachectic, and markedly older than his stated age of 72. HEENT: His mouth is dry. He is having difficulty with speech and he is using accessory muscles to breathe. He denies being in any acute distress at this time. NECK: There is no evidence of JVP or carotid bruits. LUNGS: Demonstrate decreased breath sounds bilaterally, although clear. ABDOMEN: Soft, nontender, nondistended. There is no pulsatile mass or abdominal bruit. EXTREMITIES: There is no evidence of cyanosis, clubbing or edema. LABORATORY DATA: White blood cell count 7.68, hemoglobin of 15.4, hematocrit 46.4, platelets of 136. Sodium of 141, potassium 3.6, chloride 97, bicarb 35, BUN 17, creatinine 0.5, glucose 120, magnesium 1.9. TSH from September 2017 of 1.316. Initial troponin less than 0.012. Repeat troponin today of 7.93. Chest x-ray done today demonstrates left lower lobe atelectasis secondary to mucous plugging. CTA performed yesterday demonstrates no evidence of pulmonary emboli, with severe centrilobular and bullous emphysema, with severe mucous plugging, and ascending aortic aneurysm measuring 4.1 cm. Left heart catheterization from February 10, 2015, demonstrated left main of 15% stenosis. Left anterior descending demonstrates high-grade 99% proximal stenosis, 100% mid occlusion with jqwz-mi-fuum collaterals to the diagonal. Left circumflex demonstrates 95% proximal stenosis, 95% mid, and 100% occlusion just before the first obtuse marginal branch. Right coronary artery demonstrates serial 85% to 95% stenosis with 100% mid occlusion and a right- dominant system. There was evidence of cytz-al-cypsp and dvzpi-zv-dpabv collaterals. Left internal mammary artery was unable to be cannulated secondary to unable to pass through the subclavian vessel. SHEARER appeared to anastomose to the first diagonal branch of the LAD. Ventriculogram demonstrated LVEF of 57% with posterior basal and anterior lateral wall hypokinesis. Reports demonstrated findings were essentially unchanged compared to previous left heart catheterization in 2010. IMPRESSION: 1. Acute hypoxemia, respiratory failure. 2. Severe underlying centrilobular and bullous emphysema. 3. Significant weight loss of 60 pounds over the last year in a cachectic, 120- pound, 6 foot tall gentleman, of unclear etiology. 4. Elevated troponin of 7.93 in the setting of known severe coronary artery disease, status post coronary artery bypass graft in 2001. SUMMARY: The patient is a pleasant 72-year-old gentleman, who I was asked to see in the setting of an elevated troponin of 7.93, in the setting of known coronary artery disease. He appears acutely and chronically ill with significant weight loss. He is markedly cachectic at 119 pounds. When asked why he did not undergo colonoscopy last year, he states he did not think he could tolerate the prep. He understands there is concern he may have some malignancy. He states to me his primary goal is to not be in any pain. We discussed the possibility of left heart catheterization. He was not interested in pursuing invasive procedures at this time. I also felt that given his current state of health, I did not feel left heart catheterization was appropriate and the risks outweighed the benefits at this time. I explained that I remain concerned about his weight loss, and his underlying lung disease, and his current use of accessory muscles to assist in breathing. I have spoken with other care providers. I have recommended his brother in [place] be notified to come visit with him given, I think, his overall poor prognosis. He, again, insisted to me that he was interested in remaining comfortable. He is currently listed as a full code at this point. I recommend that this be discussed in detail with the patient again. PLAN: 1. Will not pursue diagnostic left heart catheterization at this time, focus on medical therapy. 2. Serial cardiac enzymes. 3. Complete 2-D echocardiogram in the morning. 4. Patient has been started on heparin drip. Would continue unless he develops any further complaints of hemoptysis or evidence of bleeding. We will continue to follow along with his care. 1hour spent coordinating care. /[id number]/MODL MTDD
[2018-03-12] MEDS ORDERED: AZITHROMYCIN 250 MG TAB PO SCH (09:00)
--- NOTE | 2018-03-12 09:23 | GDS ---
[f rep st] DISCHARGE SUMMARY DATE OF : 03/11/2018. DIAGNOSES: 1. Chronic obstructive pulmonary disease exacerbation, with acute hypoxemic respiratory failure. 2. Acute coronary syndrome, with history of coronary artery disease. 3. Tobacco abuse. 4. Underlying severe bolus emphysema. 5. Recent weight loss and cachexia. CONSULTANTS: 1. Antonio Cheema MD, Pulmonary Critical Care. 2. Cory Bills MD, cardiology. HOSPITAL COURSE: Acute hypoxemic respiratory failure in the setting of underlying COPD and coronary artery disease: The patient presented to the hospital with shortness of breath. His work of breathi ng worsened and he was subsequently transferred to the intensive care unit and placed on BiPAP. He w as treated with IV steroids, antibiotics and Mucomyst with some improvement in his respiratory status . On the senior instrumentation engineer of 03/11/2018, the patient was noted to have runs of ventricular tachycardia. A troponin was checked which came back significantly elevated in the mid 7's. Cardiology was consu lted, The patient was deemed too sick to go to the paint laboratory technician. He subsequently on the afternoon of 03/11/2018, most likely due to hypoxemia causing acute myocardial infarction. /[id number]/MODL
== END 2018-03-11 23:52 | disposition expired | DRG 190 ==
LOC: EDUNIT# → OBSVTOIN 20:23 → F2W 21:25 → F2N 22:45
PROVIDERS: ADMIT Family Medicine; ATTEND Family Medicine
DX: J44.1 Chronic obstructive pulmonary disease with (acute) exacerbation (principal); J96.01 Acute respiratory failure with hypoxia; I21.9 Acute myocardial infarction, unspecified; I10 Essential (primary) hypertension; I25.10 Atherosclerotic heart disease of native coronary artery without angina pectoris; Z72.0 Tobacco use; Z95.1 Presence of aortocoronary bypass graft; Z51.5 Encounter for palliative care
CPT/HCPCS: 82784-90; 96374; J0360; J0456; J1644; J2060; J2270; J2930; J7608; J7613; Q9967